=== PATIENT | male | born 2000 | race Caucasian/White ===

== ENCOUNTER 2019-01-28 18:14 | Emergency (ER) | payer MEDICAID | END 2019-01-28 18:24 | LOC: ER 18:15 | DX: Z02.89 Encounter for other administrative examinations (principal); Z53.21 Procedure and treatment not carried out due to patient leaving prior to being seen by health care provider ==

== ENCOUNTER 2024-03-25 16:25 | Emergency (ER) | payer MEDICAID ==
[~2024-03-25] VITALS: Ht 167.6 cm; Wt 73.7 kg
[2024-03-25 17:00] VITALS: TEMP 97.8
[2024-03-25] MEDS: glucagon, human recombinant 1mg kit IM ONE (21:24)
[2024-03-25] MEDS ORDERED: LIDOcaine 2% Viscous 15ml cup ONE (22:04)
[2024-03-25] MEDS ORDERED: MIDAZolam 1 MG/ML 5ML VIAL ONE (22:04)
[2024-03-25] MEDS ORDERED: fentaNYL/PF 50MCG/1 ML 2ML syringe ONE ×2 (22:04→22:51)
[2024-03-25 22:15] VITALS: BP 117/85; PULSE 60; RESP 15
[2024-03-25 23:00] VITALS: BP 114/83; PULSE 81; RESP 16; O2SAT 96
[2024-03-25 23:10] VITALS: BP 107/60; PULSE 75; RESP 16; O2SAT 97
[2024-03-25 23:20] VITALS: BP 112/61; PULSE 65; RESP 16; O2SAT 99
[2024-03-25 23:30] VITALS: BP 103/67; PULSE 62; RESP 20; O2SAT 98
[2024-03-25] MEDS ORDERED: PANT-47 PO (23:44)
[2024-03-26 00:07] VITALS: BP 127/84; PULSE 64; RESP 16; O2SAT 99
== END 2024-03-26 00:09 | disposition home or self-care (01) ==
LOC: ER 16:25
DX: T18.128A Food in esophagus causing other injury, initial encounter (principal); K20.90 Esophagitis, unspecified without bleeding; W44.F3XA Food entering into or through a natural orifice, initial encounter; Y93.89 Activity, other specified; Y92.89 Other specified places as the place of occurrence of the external cause; Y99.8 Other external cause status
CPT/HCPCS: 43239; 43247; 96372; 99152; 99285; J2250; J3010; J7030; Z7512; A4620; C1889